=== PATIENT | female | born 1985 | race Caucasian/White ===

== ENCOUNTER → 2020-11-24 | Outpatient (REF) | payer BC ==
[~2020-11-24] MED LIST: *ANUSOI; ACET500C; COLA100C2; IBUP600T; LANOLIN CREAM; MILKSUS; PRENTAB8
[2020-11-24 12:24] LABS: BASO % 0.7 % (0.0-1.0); EOS # 0.1 10^3/uL (0.0-0.5); HEMOGLOBIN 14.4 g/dl (12.0-15.5); LYMPH # 1.5 10^3/uL (1.5-5.0); LYMPH % 33.6 % (24.0-44.0); MEAN CORPUSCULAR HEMOGLOBIN 28.9 pg (27.0-33.0); MEAN CORPUSCULAR VOLUME 90.2 fl (80.0-96.0); MONO # 0.3 10^3/uL (0.0-0.8); MONO % 7.7 % (0.0-5.0); NEUTROPHILS # 2.5 10^3/uL (1.5-8.5); NEUTROPHILS % 55.8 % (36.0-66.0); PLATELET COUNT, AUTOMATED 260 10^3/uL (150-450); RED BLOOD COUNT 4.99 10^6/uL (4.00-5.40); WHITE BLOOD COUNT 4.4 10^3/uL (4.0-10.0)
[2020-11-24 12:55] LABS: ALBUMIN 4.4 GM/DL (3.2-5.2); ALT/SGPT 35 U/L (12-78); BILIRUBIN,TOTAL 0.4 MG/DL (0.2-1.0); BLOOD UREA NITROGEN 19 MG/DL (7-18); CALCIUM LEVEL 9.5 MG/DL (8.5-10.1); CARBON DIOXIDE LEVEL 26 MEQ/L (21-32); CHLORIDE LEVEL 107 MEQ/L (98-107); CHOLESTEROL LEVEL 221 MG/DL (<200); CREATININE FOR GFR 0.96 MG/DL (0.55-1.30); FREE T4 0.92 NG/DL (0.76-1.46); GLOMERULAR FILTRATION RATE > 60.0 (>60); GLUCOSE, FASTING 78 MG/DL (70-100); HDL CHOLESTEROL 68 MG/DL (>40); LDL CHOLESTEROL 142 MG/DL (<100); NON-HDL-C 153 MG/DL; POTASSIUM SERUM 4.2 MEQ/L (3.5-5.1); SODIUM LEVEL 141 MEQ/L (136-145); TRIGLYCERIDES LEVEL 54 MG/DL (<150)
[2020-11-24 13:52] LABS: HEMOGLOBIN A1c 4.8 %
== END ==
LOC: M SFHCCLAY 08:00
PROVIDERS: ATTEND Nurse Practitioner Family
DX: R23.9 Unspecified skin changes (principal); Z01.84 Encounter for antibody response examination; Z13.220 Encounter for screening for lipoid disorders

== ENCOUNTER → 2020-12-24 | Outpatient (CLI) | payer BC ==
--- NOTE | 2020-12-28 09:22 | REP ---
INDICATION: N64.4 KATHRIN DIAG MAMMO/MASTODYNIA. Focal pain right breast 10-11 o'clock for 6 months. COMPARISON: None. TECHNIQUE: MLO and CC views of bilateral breasts performed with tomosynthesis. FINDINGS: Mild scattered fibroglandular tissue is present. No mass or architectural distortion is seen. No clustered microcalcifications are seen. The Volpara volumetric breast density pattern is B. IMPRESSION: BIRADS/ACR category 0, incomplete. No mass or clustered microcalcifications bilaterally. No mammographic evidence of mass at the site of focal pain right breast 10-11 o'clock. Recommend focused right breast ultrasound at that location. This patient's Tyrer-Cuzick lifetime breast cancer risk assessment score is 12.5%. This mammogram was interpreted with the aid of an FDA-approved computer-aided detection system. The patient states she had a clinical breast exam in October 2020. The patient letter being requested is M0. RECOMMENDATION: Recommend focused right breast ultrasound at the site of focal pain 10-11 o'clock. <Electronically signed by Rob Jackson > 12/28/20 [id number]
== END ==
LOC: M WHC 14:46
PROVIDERS: ATTEND Obstetrics & Gynecology
DX: R92.2 Inconclusive mammogram (principal); N64.4 Mastodynia
CPT/HCPCS: 77066; G0279

== ENCOUNTER → 2021-01-12 | Outpatient (CLI) | payer BC ==
--- NOTE | 2021-01-12 16:25 | REP ---
INDICATION: N64.4 MASTODYNIA - R. History of right breast pain in the 10-11 o'clock region for 8 months. COMPARISON: Comparison mammography 24 December 2020.. TECHNIQUE: Whole breast ultrasound right breast unilateral. FINDINGS: Mildly heterogeneous fibroglandular background echotexture is seen. No cyst mass suspicious acoustic shadowing or architectural distortion is seen by ultrasound. No suspicious sonographic findings. IMPRESSION: BI-RADS category 1 findings. Clinical follow-up is advised. <Electronically signed by August Henry > 01/12/21 [id number]
== END ==
LOC: M WHC 14:47
PROVIDERS: ATTEND Obstetrics & Gynecology
DX: N64.4 Mastodynia (principal)

== ENCOUNTER → 2022-02-16 | Outpatient (CLI) | payer BC | LOC: M PLAIMG 15:49 | PROVIDERS: ATTEND Physician Assistant | DX: M79.671 Pain in right foot (principal) ==

== ENCOUNTER → 2022-03-15 | Outpatient (REF) | payer BC ==
[2022-03-15 11:24] LABS: BASO # 0.1 10^3/uL (0.0-0.2); BASO % 0.9 % (0.0-1.0); EOS # 0.1 10^3/uL (0.0-0.5); EOS % 2.4 % (0.0-3.0); HEMOGLOBIN 13.4 g/dl (12.0-15.5); LYMPH # 1.6 10^3/uL (1.5-5.0); LYMPH % 30.6 % (24.0-44.0); MEAN CORPUSCULAR HEMOGLOBIN 30.3 pg (27.0-33.0); MEAN CORPUSCULAR HGB CONC 32.7 g/dl (32.0-36.5); MEAN CORPUSCULAR VOLUME 92.8 fl (80.0-96.0); MONO # 0.4 10^3/uL (0.0-0.8); MONO % 7.1 % (2.0-8.0); NEUTROPHILS # 3.1 10^3/uL (1.5-8.5); NEUTROPHILS % 58.6 % (36.0-66.0); PLATELET COUNT, AUTOMATED 263 10^3/uL (150-450); RED BLOOD COUNT 4.42 10^6/uL (4.00-5.40); WHITE BLOOD COUNT 5.3 10^3/uL (4.0-10.0)
[2022-03-15 11:58] LABS: HEMOGLOBIN A1c 4.9 %
[2022-03-15 12:17] LABS: ALT/SGPT 23 U/L (12-78); BILIRUBIN,TOTAL 0.6 MG/DL (0.2-1.0); BLOOD UREA NITROGEN 12 MG/DL (7-18); CALCIUM LEVEL 8.8 MG/DL (8.5-10.1); CARBON DIOXIDE LEVEL 25 MEQ/L (21-32); CHLORIDE LEVEL 109 MEQ/L (98-107); CHOLESTEROL LEVEL 197 MG/DL (<200); CHOLESTEROL RISK RATIO 3.581 (<5); CREATININE FOR GFR 0.82 MG/DL (0.55-1.30); FREE T4 0.95 NG/DL (0.76-1.46); GLOMERULAR FILTRATION RATE > 60.0 (>60); GLUCOSE, FASTING 76 MG/DL (70-100); HDL CHOLESTEROL 55 MG/DL (>40); LDL CHOLESTEROL 133 MG/DL (<100); NON-HDL-C 142 MG/DL; POTASSIUM SERUM 4.5 MEQ/L (3.5-5.1); SODIUM LEVEL 138 MEQ/L (136-145); TOTAL PROTEIN 6.6 GM/DL (6.4-8.2); TRIGLYCERIDES LEVEL 47 MG/DL (<150)
== END ==
LOC: M SFHCCLAY 07:34
PROVIDERS: ATTEND Nurse Practitioner Family
DX: R23.9 Unspecified skin changes (principal); Z01.84 Encounter for antibody response examination; Z13.220 Encounter for screening for lipoid disorders; T14.8XXD Other injury of unspecified body region, subsequent encounter

== ENCOUNTER → 2023-01-03 | Outpatient (REF) | payer BC | LOC: M SFHCWAGY 17:27 | PROVIDERS: ATTEND Nurse Practitioner Family | DX: Z12.4 Encounter for screening for malignant neoplasm of cervix (principal) | CPT/HCPCS: 87624; G0123 ==

== ENCOUNTER → 2024-02-07 | Outpatient (CLI) | payer BC | LOC: M WHC 11:49 | PROVIDERS: ATTEND Nurse Practitioner Family | DX: Z12.31 Encounter for screening mammogram for malignant neoplasm of breast (principal) ==

== ENCOUNTER → 2024-11-01 | Outpatient (REF) | LOC: M EMP 09:38 | PROVIDERS: ATTEND Family Medicine | DX: Z01.89 Encounter for other specified special examinations (principal) ==

== ENCOUNTER → 2025-02-18 | Outpatient (REF) | payer BC | LOC: M SFHCWAGY 13:14 | PROVIDERS: ATTEND Nurse Practitioner Family | DX: Z12.4 Encounter for screening for malignant neoplasm of cervix (principal); Z11.51 Encounter for screening for human papillomavirus (HPV) ==

== ENCOUNTER → 2025-02-18 | Outpatient (CLI) | payer BC | LOC: M WHC 08:20 | PROVIDERS: ATTEND Nurse Practitioner Family | DX: Z12.31 Encounter for screening mammogram for malignant neoplasm of breast (principal) ==